=== PATIENT | male | born 1945 | race Two or more races ===

== ENCOUNTER → 2020-05-09 | Day surgery (SDC) | payer MEDICARE, MEDICAID ==
[2020-05-06 10:00] LABS: HEMATOCRIT 37.9 % (42.0-52.0); HEMOGLOBIN 12.2 G/DL (14.2-18.0); LYMPHOCYTES % (AUTO) 17.5 % (20.0-45.0); MEAN CORPUSCULAR VOLUME 89 FL (80-99); NEUTROPHILS % (AUTO) 70.5 % (45.0-75.0); PLATELET COUNT 286 K/UL (150-450); RED BLOOD COUNT 4.24 M/UL (4.70-6.10); RED CELL DISTRIBUTION WIDTH 13.1 % (11.6-14.8); WHITE BLOOD COUNT 8.5 K/UL (4.8-10.8)
[2020-05-06 10:12] LABS: INR 0.9 (0.9-1.1)
[2020-05-06 10:18] LABS: CALCIUM 8.4 MG/DL (8.5-10.1); CREATININE 1.8 MG/DL (0.55-1.30)
--- NOTE | 2020-05-06 11:08 | Opthalmology H&P ---
Ophthalmology H&P H&P Chief Complaint: decreased vision in right eye HPI Vision Affects Ability to: read, focus/use eyes together, manage personal affairs Past Ocular History: retinal problems - NPDR OS HPI Narrative Blurry vision Exam Visual Acuity: OD 20/200 OS 20/60 Tension: OD 13 OS 12 Eye Exam: normal OU: external exam, palpebral fissure-width, marginal reflex distance, levator function, corneas, anterior chambers, lens - NS Cataract OD, fundus exam - NPDR OS; findings: lens - NS Cataract OD, fundus exam - NPDR OS Assessment/Plan Treatment Plan: cataract extraction w/ lens implant Goals of Treatment: improvement of vision, enhance quality of life Attestation Attestation The risks and benefits of the surgery as well as alternative procedures were explained to the patient in detail. Cachorro Dinh MD May 06, 2020 11:08
--- NOTE | 2020-05-06 11:09 | Pre-Procedure Note/Attestation ---
Pre-Procedure Note/Attestation Complete Prior to Procedure Planned Procedure: right Procedure Narrative: Cataract extraction with IOL implant right eye Indications for Procedure Pre-Operative Diagnosis: Nuclear sclerotic cataract right eye Attestation I attest that I discussed the nature of the procedure; its benefits; risks and complications; and alternatives (and the risks and benefits of such alternatives ), prior to the procedure, with the patient (or the patient's legal event sales representative). I attest that, if there was a reasonable possibility of needing a blood transfusion, the patient (or the patient's legal event sales representative) was given the [facility] standardized written summary, pursuant to the [place] Blood Safety Act ([place] Health and Safety Code # 1645, as amended). I attest that I re-evaluated the patient just prior to the surgery and that there has been no change in the patient's H&P, except as documented below: Cachorro Dinh MD May 06, 2020 11:09
--- NOTE | 2020-05-06 15:29 | Pre-op HX & Phy Repo 2 SIG ---
DATE OF ADMISSION: 05/09/2020 PRESURGICAL INTERNAL MEDICINE HISTORY AND PHYSICAL DATE OF EVALUATION: 05/06/2020. REASON FOR EVALUATION: I was asked by Dr. Cachorro Dinh to see this 74-year-old male, who is going for elective surgery on the right eye on May 09, 2020. The patient was evaluated in the outpatient procedure department. The patient has nuclear sclerotic cataract, right eye. Please see full Ophthalmology History and Physical by Dr. Cachorro Dinh. The patient denies recent travels, weight loss, fevers. PAST MEDICAL HISTORY: Remarkable for hypertension, adult onset diabetes mellitus type 2, history of right renal cancer and history of hyperlipidemia. No history of stroke or seizures. Denies history of heart attack. No history of respiratory problem. No anemia. No thyroid problem. PAST SURGICAL HISTORY: Right nephrectomy one year ago. FAMILY HISTORY: Both parents of old age. ALLERGIES: Not known. MEDICATIONS: 1. Lisinopril mg daily. 2. Amlodipine 5 mg. 3. Januvia. 4. Atorvastatin. HABITS: The patient smoked 40 years ago for short period of time. Denies alcohol or street drug use. PHYSICAL EXAMINATION: VITAL SIGNS: Today, blood pressure 155/81, temperature 97.0, pulse 71, respirations 18, O2 saturation 99% on room air. SKIN: Clear, dry, warm. No rashes. LYMPHATICS: Lymph nodes not enlarged. HEENT: Head, normocephalic, atraumatic. Ears, clear. No discharge. Eyes, full description per Dr. Cachorro Dinh. Mouth, clear and moist. No dentures. NECK: Supple. No jugular venous distention. Carotids artery +2. Trachea midline. CHEST: No deformity or asymmetry. LUNGS: Clear to auscultation and percussion. No rales or rhonchi. HEART: Regular. No ectopy. No murmur. No S3, S4. ABDOMEN: Soft. No palpable mass. No rebound. EXTREMITIES: No peripheral edema. No varicose vein. GENITOURINARY TRACT: Post right nephrectomy for cancer. Denies dysuria. No CVA tenderness. NERVOUS SYSTEM: No tremor. No nystagmus. DIAGNOSTIC DATA: ECG, normal sinus rhythm, 62 per minute, right ventricular hypertrophy, anterolateral OH old. Lab work obtained includes COVID-19 results. White blood cells 8.5, hemoglobin 12.2, hematocrit 37.9. Sodium 139, potassium 5.0, BUN 38, creatinine 1.8, estimated GFR 37.2, blood sugar 210, calcium 8.4. PT 10.4, INR 0.9, PTT 28. IMPRESSION: 1. Nuclear sclerotic cataract, right eye. 2. Hypertension, controlled. 3. Adult onset diabetes mellitus. 4. Mild anemia, hemoglobin 12.2. 5. Chronic renal insufficiency, stage 3. 6. . 7. ECG, anterolateral OH old, asymptomatic. PLAN: Cataract extraction, right eye with intraocular implant per Dr. Cachorro Dinh. Scheduled for Saturday, May 09, 2020. CONCLUSION: The patient is a 74-year-old male with multiple medical problems including hypertension, adult onset diabetes mellitus, chronic renal insufficiency, history of right renal cancer, post nephrectomy. The patient's EKG shows sinus rhythm, right ventricular hypertrophy and anterolateral OH old. The patient's vital signs are stable. He is asymptomatic and the patient's condition optimized for surgery. RECOMMENDATION: To be NPO prior to surgery for at least six to eight hours. Thank you very much, Dr. Dinh, for privilege to participate in presurgical care of this interesting patient. Rei Cedillo M.D. DR: [facility] [employer]#: [id number] CC:
[2020-05-09] VITALS (8 sets, daily range): BP systolic 141–154; BP diastolic 74–88
[~2020-05-09] VITALS: Ht 167.6 cm; Wt 76.2 kg
[~2020-05-09] MED LIST: AMLODIPINE BESYL5 MG ORAL; Akten 3.5% 1ml Btl RIGHT EYE ONE; BSS 15ml BTL ONE; BSS 500ml btl ONE; EPINEPHrine 1mg/1ml Amp ONE; JANUVIA25 MG ORAL; LISINOPRIL-HCT1 EACH ORAL; LR 1000ml ONE; Maxitrol Opth Oint 3.5gm ONE; NAMENDA5 MG ORAL; NS Irrig 1000ml ONE; Pilocarpine 1% Opth 15ml Soln ONE; Povidone-Iodine 5% opth solution ONE; Proparacaine 0.5% Opth Soln 15ml RIGHT EYE ONE; Sodium Hyaluronate 10 mg/ml 0.85ml ONE; Sterile Water Irrig 1000ml IRRIG ONE; Tetracaine 0.5% Opth 4ml Soln RIGHT EYE ONE; fentaNYL 100 mcg/2 mL IV ONE; fentaNYL 100 mcg/2 mL IV PRN; prednisoLONE acetate 1% Opth Susp 1ml ONE
[2020-05-09] MEDS: Tobramycin Op Soln 0.3% 5ml RIGHT EYE SCH ×3 (08:57→09:18)
[2020-05-09] MEDS: Cyclopentolate 1% Opth Sol 2ml RIGHT EYE SCH ×3 (08:58→09:18)
[2020-05-09] MEDS: Diclofenac Sod 0.1% Op Soln RIGHT EYE SCH ×3 (08:58→09:18)
[2020-05-09] MEDS: Phenylephrine 10% Opth Soln 5ml RIGHT EYE SCH ×3 (08:58→09:18)
[2020-05-09] MEDS: Tropicamide 1% Opth 15ml Soln RIGHT EYE SCH ×3 (08:58→09:18)
--- NOTE | 2020-05-09 11:07 | Anethesia Preoperative Eval ---
Anesthesia Pre-op PMH/ROS General Date of Evaluation: May 09, 2020 Time of Evaluation: 11:04 Anesthesiologist: Francesca ASA Score: ASA 3 Mallampati Score Class I : Soft palate, uvula, fauces, pillars visible Class II: Soft palate, uvula, fauces visible Class III: Soft palate, base of uvula visible Class IV: Only hard plate visible Mallampati Classification: Class II Surgeon: Allegra Diagnosis: R eye cataract Surgical Procedure: Cataract extraction Anesthesia History: none Family History: no anesthesia problems Allergies: Coded Allergies: No Known Allergies (Unverified , 05/05/20) Medications: see eMAR Patient NPO?: Yes Past Medical History Cardiovascular: Reports: HTN; Denies: CAD, DC, valve dz, arrhythmia, other Pulmonary: Denies: asthma, COPD, MATY, other Gastrointestinal/Genitourinary: Reports: GERD, CRI, other - Nephrectomy for CA ; Denies: ESRD Neurologic/Psychiatric: Reports: depression/anxiety; Denies: dementia, CVA, TIA, other Endocrine: Reports: DM; Denies: hypothyroidism, steroids, other HEENT: Reports: cataract (L), cataract (R); Denies: glaucoma, NEZ PERCE (L), NEZ PERCE (R), other Hematology/Immune: Reports: anemia - mild; Denies: DVT, bleeding disorder, other Musculoskeletal/Integumentary: Reports: OA PMH Narrative: as above PSxH Narrative: see H&P Anesthesia Pre-op Phys. Exam Physician Exam Last Vital Signs Date Time Temp Pulse Resp B/P (MAP) Pulse Ox O2 Delivery O2 Flow Rate FiO2 05/09/20 09:09 Room Air 05/09/20 09:03 97.6 68 18 150/74 100 Constitutional: NAD Neurologic: CN 2-12 intact Cardiovascular: RRR, no M/R/G Respiratory: CTA Gastrointestinal: S/NT/ND Airway Exam Mallampati Score: Class II MO: limited Neck: stiff ROM: limited Teeth: missing Dentures: no upper, no lower Anesthesia Pre-op A/P Labs Chemistry Test 05/09/20 09:24 POC Whole Blood Glucose Pending Studies Pre-op Studies: EKG - SR Risk Assessment & Plan Assessment: ASA 3 Plan: Johnny Garcias MD May 09, 2020 11:07
--- NOTE | 2020-05-09 12:35 | Immediate Post-Op Evaluation ---
Immediate Post-Op Evalulation Immediate Post-Op Evalulation Procedure: R eye cataract extraction with IOL Date of Evaluation: May 09, 2020 Time of Evaluation: 12:34 IV Fluids: 300 Blood Products: none Estimated Blood Loss: none Urinary Output: NONE Blood Pressure Systolic: 146 Blood Pressure Diastolic: 72 Pulse Rate: 80 Respiratory Rate: 18 O2 Sat by Pulse Oximetry: 99 Temperature (Fahrenheit): 97.8 Pain Score (1-10): 1 Nausea: No Vomiting: No Complications none Patient Status: awake, patent, none Hydration Status: adequate Johnny Ma MD May 09, 2020 12:35
--- NOTE | 2020-05-09 13:14 | 48 Hour Post Anesthesia Eval ---
Post Anesthesia Evaluation Procedure: R eye cataract extraction with IOL Date of Evaluation: May 09, 2020 Time of Evaluation: 13:13 Blood Pressure Systolic: 128 0: 74 Pulse Rate: 68 Respiratory Rate: 20 Temperature (Fahrenheit): 97.8 O2 Sat by Pulse Oximetry: 98 Airway: patent Nausea: No Vomiting: No Pain Intensity: 1 Hydration Status: adequate Cardiopulmonary Status: stable Mental Status/LOC: patient returned to baseline Follow-up Care/Observations: n/a Post-Anesthesia Complications: none Follow-up care needed: ready to discharge Johnny Ma MD May 09, 2020 13:14
--- NOTE | 2020-05-10 12:59 | Brief Operative Note ---
Immediate Post Operative Note Operative Note Chief Complaint: Blurry vision Pre-op Diagnosis: Nuclear sclerotic cataract right eye Procedure: Cataract extraction with IOL implant right eye Post-op Diagnosis: Pseudo OD Findings: consistent w/pre-op dx studies Surgeon: Cachorro Dinh MD Anesthesiologist: Johnny Ma MD Anesthesia: MAC Specimen: none Complications: none Condition: stable Fluids: LR Estimated Blood Loss: none Drains: none Implant(s) used?: Yes - IOL-OD Cachorro Dinh MD May 10, 2020 12:59
--- NOTE | 2020-05-10 13:03 | Operative Note - PDOC ---
Operative Note Operative Note Date of Operation/Procedure: May 09, 2020 Chief Complaint: Blurry vision Pre-op Diagnosis: Nuclear sclerotic cataract right eye Procedure: Cataract extraction with IOL implant right eye Post-op Diagnosis: Pseudo OD Operative Findings: consistent w/pre-op dx studies Surgeon: Cachorro Dinh MD Anesthesiologist: Johnny Ma MD Anesthesia: MAC Specimen: none Complications: none Condition: stable Fluids: LR Estimated Blood Loss: none Drains: none Implant(s) used?: Yes - IOL-OD Indications for Procedure Nuclear sclerotic cataract right eye Description of Procedure This patient has been complaining visually significant cataract in the right eye with the best corrected visual acuity of 20/200 under moderate glare conditions worse. The patient complains of difficulties with glare in performing activities of daily living and wants to manage personal affairs with comfort and accuracy and see well enough to move with safety at home and outdoors. The risks, benefits and alternatives of the procedure were discussed with the patient in the office prior to scheduling surgery. All questions from the patient were answered after the surgical procedure was explained in detail. The risks of the procedure as explained to the patient include, but are not limited to, pain, infection, bleeding, loss of vision, retinal detachment, need for further surgery, loss of lens nucleus, double vision, etc. Alternative procedures were discussed which include, to do nothing or seek a second opinion. Informed consent for this procedure was obtained from the patient. The patient was referred to a primary care physician for a cardiopulmonary clearance prior to surgery, after proper evaluation was done patient was properly scheduled for outpatient surgery. The patient was brought to the operating room where the anesthesiologist established I.V. lines and cardiac monitoring leads. Mild intravenous sedation was administered. The patient was then prepared with a 5% solution of povidone -iodine to the conjunctival fornix and lashes, and a 5% solution of povidone- iodine to the lids and periorbital skin. The patient was then draped in the usual sterile fashion. A lid speculum was then placed in the operative eye. A keratome blade was then used to create a biplanar incision into the anterior chamber. Viscoelastics was then instilled into the anterior chamber. A 3-mm single pass clear corneal incision was made just anterior to the vascular arcade of the temporal limbus using a keratome. Anterior capsulorrhexis was created. The nucleus was hydrodissected and hydrodelineated, and was freely movable in the capsular bag. The nucleus was then phacoemulsified. Following the deep groove formation, the lens was split bimanually and epicortex removed under vacuum burst-mode phacoemulsification. Peripheral cortex was removed with the irrigation and aspiration handpiece. The capsular bag was expanded with viscoelastic. The intraocular lens was then inspected for right power and size and thought to be satisfactory. The implant was inspected under the microscope and found to be free of defects. The implant was inserted into the cartridge system under viscoelastic and placed in the capsular bag. The trailing haptic was positioned with the cartridge system. Viscoelastics was removed from the anterior chamber using the irrigation and aspiration unit. The corneal wound was then tested for leaks and none were found. The lid speculum were then removed. Sponge and needle counts were correct. An eye patch and shield were placed over the operative eye. The patient was taken to the recovery room in stable condition. There were no complications. The patient tolerated the procedure well. The patient was then transferred to the ambulatory surgery unit in stable and satisfactory condition , was given detailed written instructions and asked to follow up in the office the next day. Cachorro Dinh MD May 10, 2020 13:03
== END | disposition home or self-care (01) ==
LOC: SUR 06:38
DX: H25.11 Age-related nuclear cataract, right eye (principal); E11.9 Type 2 diabetes mellitus without complications; I10 Essential (primary) hypertension; Z85.89 Personal history of malignant neoplasm of other organs and systems; Z85.528 Personal history of other malignant neoplasm of kidney; E78.5 Hyperlipidemia, unspecified; Z90.5 Acquired absence of kidney; Z79.899 Other long term (current) drug therapy; I25.2 Old myocardial infarction; D64.9 Anemia, unspecified; I12.9 Hypertensive chronic kidney disease with stage 1 through stage 4 chronic kidney disease, or unspecified chronic kidney disease; E11.22 Type 2 diabetes mellitus with diabetic chronic kidney disease; N18.3 Chronic kidney disease, stage 3 (moderate)
CPT/HCPCS: 36415; 66984; 80048; 82962; 85025; 85610; 85730; 94003; J0171; J1100; J2704; J3010; J3370; J7120; U0002; V2632; 94150